=== PATIENT | male | born 2000 | race Caucasian/White ===

== ENCOUNTER 2022-01-11 20:33 | Emergency (ER) | payer OTHER ==
[2022-01-11 20:39] VITALS: BP 136/80; PULSE 80; TEMP 98.8; BMI 31.6
[2022-01-11] MEDS ORDERED: ONDANSETRON 4 MG/2 ML VIAL IVPUSH ONE (20:48)
[2022-01-11] MEDS ORDERED: MECLIZINE HCL 25 MG TABLET (FP) PO ONE (20:48)
[2022-01-11] MEDS ORDERED: SODIUM CHLORIDE 1,000 ML IV STA (20:48)
[2022-01-11] MEDS ORDERED: ONDANSETRON 4 MG/2 ML VIAL ONE (21:05)
[2022-01-11] MEDS ORDERED: MECLIZINE HCL 25 MG TABLET (FP) ONE (21:05)
[2022-01-11 21:25] LABS: HEMATOCRIT 47.1 % (35.4-49); HEMOGLOBIN 16.6 G/dL (11.7-16.9); MCH 29.3 pg (25.7-33.7); MCHC 35.1 g/dl (32.0-35.9); MEAN CELL VOLUME 83.3 fl (80-96); MEAN PLT VOLUME 7.2 fl (7.5-11.1); PLATELET COUNT 380.8 10^3/uL (134-434); RBC 5.65 10^6/uL (4.00-5.60); RDW 14.1 % (11.9-15.9); WHITE BLOOD COUNT 10.9 10^3/uL (4.0-10.8)
[2022-01-11 21:43] LABS: ALBUMIN 5.1 g/dl (3.4-5.0); CALCIUM 10.3 mg/dl (8.5-10); CREATININE 0.8 mg/dl (0.55-1.3); TOT PROT 8.6 g/dl (6.4-8.2)
[2022-01-11 22:42] LABS: PLATELET ESTIMATE ADEQUATE
== END 2022-01-11 22:20 | disposition home or self-care (01) ==
LOC: FER 20:33
PROC: 3E033NZ Introduction of Analgesics, Hypnotics, Sedatives into Peripheral Vein, Percutaneous Approach (ICD-10-PCS; principal; 2022-01-11)
PROC: 3E0337Z Introduction of Electrolytic and Water Balance Substance into Peripheral Vein, Percutaneous Approach (ICD-10-PCS; 2022-01-11)
DX: R42 Dizziness and giddiness (principal)
CPT/HCPCS: 36415; 80053; 85027; 99284-25